=== PATIENT | female | born 1965 | race Hispanic/Latino ===

== ENCOUNTER 2019-02-20 18:49 | Emergency (ER) | payer BC ==
[2019-02-20] MEDS ORDERED: HYDROCODONE/CHLORPHEN 5 ML/OSYR ONE (19:14)
--- NOTE | 2019-02-20 19:45 | EDPHYS ---
Physician Documentation [facility] Name: Destini Benson Age: 53 yrs Sex: Female : 1965 Arrival Date: 02/20/2019 Time: 18:54 Bed 19 Private MD: ED Physician Teodoro Ernst HPI: 02/20 19:06 This 53 yrs old Female presents to ER via Ambulatory with complaints of Flu pm1 Symptoms. 19:06 The patient or guardian reports cough, congestion. Onset: The symptoms/episode pm1 began/occurred last night. Severity of symptoms: in the emergency department the symptoms are actually worse. Modifying factors: The symptoms are alleviated by nothing, the symptoms are aggravated by nothing. Associated signs and symptoms: Pertinent positives: body aches, Pertinent negatives: chest pain, diarrhea, ear ache, fever, sore throat, vomiting, shortness of breath. 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 - Social history:: Smoking status: Patient/guardian denies using tobacco. - Ebola Screening: : No symptoms or risks identified at this time. ROS: 19:06 Eyes: Negative for injury, pain, redness, and discharge, ENT: Negative for injury, pm1 pain, and discharge, Neck: Negative for injury, pain, and swelling, Cardiovascular: Negative for chest pain, palpitations, and edema. 19:06 Abdomen/GI: Negative for abdominal pain, nausea, vomiting, diarrhea, and constipation, Back: Negative for injury and pain, MS/Extremity: Negative for injury and deformity, Skin: Negative for injury, rash, and discoloration, Neuro: Negative for headache, weakness, numbness, tingling, and seizure. 19:06 Constitutional: Positive for body aches, Negative for poor PO intake. 19:06 Respiratory: Positive for cough, Negative for shortness of breath, sputum production, wheezing. Exam: 19:06 Constitutional: This is a well developed, well nourished patient who is awake, alert, pm1 and in no acute distress. Head/Face: Normocephalic, atraumatic. Eyes: Pupils equal round and reactive to light, extra-ocular motions intact. Lids and lashes normal. Conjunctiva and sclera are non-icteric and not injected. Cornea within normal limits. Periorbital areas with no swelling, redness, or edema. ENT: Nares patent. No nasal discharge, no septal abnormalities noted. Tympanic membranes are normal and external auditory canals are clear. Oropharynx with no redness, swelling, or masses, exudates, or evidence of obstruction, uvula midline. Mucous membranes moist. Neck: Trachea midline, no thyromegaly or masses palpated, and no cervical lymphadenopathy. Supple, full range of motion without nuchal rigidity, or vertebral point tenderness. No Meningismus. Chest/axilla: Normal chest wall appearance and motion. Nontender with no deformity. No lesions are appreciated. Cardiovascular: Regular rate and rhythm with a normal S1 and S2. No gallops, murmurs, or rubs. No pulse deficits. Respiratory: Lungs have equal breath sounds bilaterally, clear to auscultation and percussion. No rales, rhonchi or wheezes noted. No increased work of breathing, no retractions or nasal flaring. Abdomen/GI: Soft, non-tender, with normal bowel sounds. No distension or tympany. No guarding or rebound. No evidence of tenderness throughout. Obese Back: No spinal tenderness. No costovertebral tenderness. Full range of motion. Skin: Warm, dry with normal turgor. Normal color with no rashes, no lesions, and no evidence of cellulitis. MS/ Extremity: Pulses equal, no cyanosis. Neurovascular intact. Full, normal range of motion. 19:06 Neuro: Orientation: is normal, Motor: is normal, moves all fours, Gait: is steady, at a normal pace, without difficulty. Vital Signs: 19:00 BP 132 / 78; Pulse 96; Resp 19; Temp 98.8; Pulse Ox 97% ; Weight 113.4 kg; Height 5 ft. rv 2 in. (157.48 cm) (M); 19:00 Body Mass Index 45.73 (113.40 kg, 157.48 cm) rv MDM: 19:00 Patient medically screened. pm1 19:08 Data reviewed: vital signs. Data interpreted: Pulse oximetry: on room air is 97 %. pm1 Interpretation: normal. 19:44 Counseling: I had a detailed discussion with the patient and/or guardian regarding: the pm1 historical points, exam findings, and any diagnostic results supporting the discharge/admit diagnosis, lab results, the need for outpatient follow up, to return to the emergency department if symptoms worsen or persist or if there are any questions or concerns that arise at home. ED course: Patient wants Tamiflu. 02/20 19:06 Order name: Flu; Complete Time: 19:41 pm1 Administered Medications: 19:17 Drug: Tussionex Pennkinetic ER 5 ml Route: PO; lp1 19:46 Follow up: Response: No adverse reaction lp1 19:46 Drug: Tamiflu 75 mg Route: PO; lp1 19:46 Follow up: Response: Medication administered at discharge. lp1 Disposition: 02/21 07:40 Co-signature as Attending Physician, Teodoro Ernst MD I agree with the assessment and kdr plan of care. Disposition: 02/20/19 19:44 Discharged to Home. Impression: Influenza due to identified novel influenza A virus. - Condition is Stable. - Discharge Instructions: Influenza, Adult. - Prescriptions for Tamiflu 75 mg Oral Capsule - take 1 tablet by ORAL route every 12 hours for 5 days; 10 tablet. Guaifenesin AC 10- 100 mg/5 mL Oral Liquid - take 10 milliliter by ORAL route every 4 hours As needed; 240 milliliter. - Medication Reconciliation Form, Thank You Letter, Antibiotic Education, Prescription Opioid Use form. - Follow up: Emergency Department; When: As needed; Reason: Worsening of condition. Follow up: Private Physician; When: 2 - 3 days; Reason: Recheck today's complaints, Continuance of care, Re-evaluation by your physician. - Problem is new. - Symptoms have improved. Signatures: Dispatcher [employer] EDMS Teodoro Ernst MD MD [facility] Iris Ventura RN RN lp1 Nicholas Nieto NP PRODUCT CONSULTANT pm1 Jimenez Jacobsen RN RN rv Corrections: (The following items were deleted from the chart) 02/20 19:53 19:44 02/20/2019 19:44 Discharged to Home. Impression: Influenza due to identified lp1 novel influenza A virus. Condition is Stable. Forms are Medication Reconciliation Form, Thank You Letter, Antibiotic Education, Prescription Opioid Use. Follow up: Emergency Department; When: As needed; Reason: Worsening of condition. Follow up: Private Physician; When: 2 - 3 days; Reason: Recheck today's complaints, Continuance of care, Re-evaluation by your physician. Problem is new. Symptoms have improved. pm1
--- NOTE | 2019-02-20 19:45 | ER ---
Nurse's Notes [facility] Name: Destini Benson Age: 53 yrs Sex: Female : 1965 Arrival Date: 02/20/2019 Time: 18:54 Bed 19 Private MD: Diagnosis: Influenza due to identified novel influenza A virus Presentation: 02/20 18:59 Presenting complaint: Patient states: HAVING SOME ACHES, FEVERISH SINCE LAST NIGHT WITH rv COUGH AND CONGESTION. Transition of care: patient was not received from another setting of care. Onset of symptoms was February 19, 2019 at 19:00. Risk Assessment: Do you want to hurt yourself or someone else? Patient reports no desire to harm self or others. Initial Sepsis Screen: Does the patient meet any 2 criteria? No. Patient's initial sepsis screen is negative. Does the patient have a suspected source of infection? No. Patient's initial sepsis screen is negative. Care prior to arrival: None. 18:59 Method Of Arrival: Ambulatory rv 18:59 Acuity: SHARAD 4 rv Triage Assessment: 19:03 General: Appears comfortable, Behavior is cooperative. Pain: Denies pain. EENT: No rv deficits noted. Neuro: Level of Consciousness is awake, alert, obeys commands, Oriented to person, place, time, situation. Cardiovascular: Patient's skin is warm and dry. Respiratory: Airway is patent. 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 - Social history:: Smoking status: Patient/guardian denies using tobacco. - Ebola Screening: : No symptoms or risks identified at this time. Screenin:18 Abuse screen: Denies threats or abuse. Denies injuries from another. Nutritional lp1 screening: No deficits noted. Tuberculosis screening: No symptoms or risk factors identified. Fall Risk None identified. Assessment: 19:17 General: Appears in no apparent distress. Behavior is calm, cooperative, appropriate lp1 for age, Reports feeling ill for. Pain: Denies pain. Neuro: Level of Consciousness is awake, alert, obeys commands. Cardiovascular: Patient's skin is warm and dry. Respiratory: Reports cough that is Respiratory effort is even, unlabored. GI: No signs and/or symptoms were reported involving the gastrointestinal system. : No signs and/or symptoms were reported regarding the genitourinary system. EENT: No signs and/or symptoms were reported regarding the EENT system. Derm: Skin is pink, warm \T\ dry. Musculoskeletal: No deficits noted. Vital Signs: 19:00 BP 132 / 78; Pulse 96; Resp 19; Temp 98.8; Pulse Ox 97% ; Weight 113.4 kg; Height 5 ft. rv 2 in. (157.48 cm) (M); 19:00 Body Mass Index 45.73 (113.40 kg, 157.48 cm) rv ED Course: 18:54 Patient arrived in ED. mr 19:00 Triage completed. rv 19:00 Nicholas Nieto NP is PHCP. pm1 19:00 Teodoro Ernst MD is Attending Physician. pm1 19:10 Iris Ventura, CODY is Primary Nurse. lp1 19:15 Flu Sent. jb5 19:17 Arm band placed on. lp1 19:18 No provider procedures requiring assistance completed. Patient did not have IV access lp1 during this emergency room visit. 19:18 Patient has correct armband on for positive identification. lp1 Administered Medications: 19:17 Drug: Tussionex Pennkinetic ER 5 ml Route: PO; lp1 19:46 Follow up: Response: No adverse reaction lp1 19:46 Drug: Tamiflu 75 mg Route: PO; lp1 19:46 Follow up: Response: Medication administered at discharge. lp1 Outcome: 19:44 Discharge ordered by . pm1 19:53 Discharged to home ambulatory, with significant other. lp1 19:53 Condition: good 19:53 Discharge instructions given to patient, Instructed on discharge instructions, follow up and referral plans. medication usage, Demonstrated understanding of instructions, follow-up care, medications, Prescriptions given X 2. 19:53 Patient left the ED. lp1 Signatures: Mai Salazar mr Iris Ventura, RN RN lp1 Nicholas Nieto NP SUPERVISOR REWORK pm1 Chantel Noguera jb5 Jimenez Jacobsen RN RN rv
[2019-02-20] MEDS ORDERED: OSELTAMIVIR 75 MG CAP ONE (19:46)
[2019-02-20 19:57] VITALS: BP 132/78; TEMP 98.8; O2SAT 97
== END 2019-02-20 19:53 | disposition home or self-care (01) ==
LOC: ER 18:49
DX: J10.1 Influenza due to other identified influenza virus with other respiratory manifestations (principal); I10 Essential (primary) hypertension
CPT/HCPCS: 87804; 99283

== ENCOUNTER 2020-11-20 16:27 | Emergency (ER) | payer BC, OTHER ==
[2020-11-20 19:19] LABS: SARS-COV-2 RT PCR POSITIVE (NEGATIVE)
[2020-11-20] MEDS ORDERED: CASIRIVIMAB/IMDEVIMAB 10 ML VIAL ONE (20:17)
[2020-11-20] MEDS ORDERED: NA CHLORIDE 0.9% 250 ML ONE (20:24)
[2020-11-20] MEDS ORDERED: NA CHLORIDE 0.9% 100 ML ONE (20:24)
[2020-11-20] MEDS ORDERED: IBUPROFEN 400 MG TAB ONE (20:54)
--- NOTE | 2020-11-20 23:30 | EDPHYS ---
Physician Documentation [facility] Name: Destini Benson Age: 55 yrs Sex: Female : 1965 Arrival Date: 11/20/2020 Time: 16:40 Bed 2 Private MD: ED Physician Stoney Duncan HPI: 11/20 23:22 This 55 yrs old Female presents to ER via Ambulatory with complaints of jmm bodyaches, Fever. 23:22 Onset: The symptoms/episode began/occurred gradually, 1 day(s) ago. Modifying factors: jmm The symptoms are alleviated by nothing. the symptoms are aggravated by nothing. The patient has not experienced similar symptoms in the past. This is a 55-year-old female with a history of hypertension, hyperlipidemia the presents emerged part with complaints of cough, congestion, nausea, weakness beginning last night. has similar symptoms. Patient was immunized for coronavirus.. Historical: - Allergies: 16:51 No Known Allergies; ll1 - PMHx: 16:51 Hypertension; High Cholesterol; thyroid; ll1 - PSHx: 16:51 Cholecystectomy; back SX, partial hysterectomy; ll1 - Immunization history:: Client reports receiving the 2nd dose of the Covid vaccine, Flu vaccine is up to date. - Social history:: Smoking status: Patient denies any tobacco usage or history of. ROS: 23:22 Cardiovascular: Negative for chest pain, palpitations, and edema, Respiratory: Negative jmm for shortness of breath, cough, wheezing, and pleuritic chest pain. 23:22 Constitutional: Positive for body aches, chills. 23:22 All other systems are negative. Exam: 23:22 Constitutional: This is a well developed, well nourished patient who is awake, alert, jmm and in no acute distress. Head/Face: atraumatic. Eyes: EOMI, no conjunctival erythema appreciated ENT: Moist Mucus Membranes Neck: Trachea midline, Supple Chest/axilla: Normal chest wall appearance and motion. Cardiovascular: Regular rate and rhythm. No edema appreciated Respiratory: Normal respirations, no respiratory distress appreciated Abdomen/GI: Non distended, soft Back: Normal ROM Skin: General appearance color normal MS/ Extremity: Moves all extremities, no obvious deformities appreciated, no edema noted to the lower extremities Neuro: Awake and alert, normal gait Psych: Behavior is normal, Mood is normal, Patient is cooperative and pleasant Vital Signs: 16:52 BP 156 / 101; Pulse 93; Resp 17; Temp 99.5; Pulse Ox 97% on R/A; Weight 113.4 kg; ll1 Height 5 ft. 2 in. (157.48 cm); Pain 3/10; 20:38 BP 159 / 90; Pulse 86; Resp 18; Pulse Ox 100% on R/A; df1 21:02 BP 150 / 74; Pulse 79; Resp 18; Pulse Ox 100% on R/A; df1 21:15 BP 142 / 72; Pulse 76; Resp 18; Pulse Ox 100% on R/A; df1 21:30 BP 139 / 75; Pulse 77; Resp 18; Pulse Ox 100% on R/A; df1 21:45 BP 141 / 74; Pulse 78; Resp 18; Pulse Ox 100% on R/A; df1 22:00 BP 133 / 76; Pulse 80; Resp 18; Pulse Ox 100% on R/A; df1 22:26 BP 135 / 75; Pulse 81; Resp 18; Pulse Ox 100% on R/A; df1 23:00 BP 143 / 76; Pulse 80; Resp 18; Pulse Ox 100% on R/A; df1 16:52 Body Mass Index 45.73 (113.40 kg, 157.48 cm) ll1 MDM: 19:25 Patient medically screened. gricelda 23:26 Data reviewed: vital signs, nurses notes. Counseling: I had a detailed discussion with gricelda the patient and/or guardian regarding: the historical points, exam findings, and any diagnostic results supporting the discharge/admit diagnosis, lab results, the need for outpatient follow up, to return to the emergency department if symptoms worsen or persist or if there are any questions or concerns that arise at home. 11/20 17:06 Order name: Flu [facility] 11/20 19:19 Order name: COVID-19/FLU A+B; Complete Time: 19:29 EDMS 11/20 17:06 Order name: Droplet/Contact Precautions; Complete Time: 19:33 kj1 11/20 17:06 Order name: Labs collected and sent; Complete Time: 19:33 kj1 11/20 17:06 Order name: O2 Per Protocol; Complete Time: 19:33 kj1 Administered Medications: 20:35 Drug: Motrin (ibuprofen) 400 mg Route: PO; df1 22:35 Follow up: Response: No adverse reaction ea 23:01 Follow up: Response: No adverse reaction; Pain is decreased df1 21:00 Drug: Casirivimab-Imdevimab Dose Pack 120 mg/mL-120 mg/mL (EUA) 1 application Route: ea IV; Rate: calculated rate; Site: left antecubital; 22:35 Follow up: Response: No adverse reaction; IV Status: Completed infusion; IV Intake: ea 250ml 23:01 Follow up: Response: No adverse reaction; IV Intake: 250ml df1 Disposition Summary: 11/20/20 23:30 Discharge Ordered Location: Home [facility] Condition: Stable [facility] Diagnosis - Coronavirus infection, unspecified [facility] Followup: [facility] - With: Private Physician - When: 2 - 3 days - Reason: Recheck today's complaints, Continuance of care, Re-evaluation by your physician Discharge Instructions: - Discharge Summary Sheet [facility] - COVID-[address] [facility] Forms: - Medication Reconciliation Form [facility] - Thank You Letter [facility] - Antibiotic Education [facility] - Prescription Opioid Use [facility] Addendum: 11/24/2020 19:37 Co-signature as Attending Physician, Stoney Duncan MD I agree with the assessment and r n plan of care. Attestation: The patient's history, exam findings, diagnostics, and a summary of any interventions or procedures was reviewed in detail with Yuval DIAMOND. Signatures: Dispatcher [employer] Yuval Arias PA PA jmm Nieto, Roman, MD MD rn Antunez, Elena, RN RN ea Jackson, Kandis kj1 Nomi Vázquez RN RN ll1 Vira Sun df1 Corrections: (The following items were deleted from the chart) 11/20 18:09 17:06 Influenza Screen (A ordered. EDMS EDMS 18: 17:06 CORONAVIRUS ordered. EDMS EDMS
--- NOTE | 2020-11-20 23:30 | ER ---
Nurse's Notes [facility] Name: Destini Benson Age: 55 yrs Sex: Female : 1965 Arrival Date: 11/20/2020 Time: 16:40 Bed 2 Private MD: Diagnosis: Coronavirus infection, unspecified Presentation: 11/20 16:52 Chief complaint: Patient states: Cough, fatigue, body aches since last night. [place] hot ll1 with chills last night. Coronavirus screen: Vaccine status: Patient reports receiving the 2nd dose of the covid vaccine. Client denies travel out of the [place] in the last 14 days. chills, congestion, cough unrelated to allergies, fatigue, fever, muscle pain, shaking with chills, Client presents with at least one sign or symptom that may indicate coronavirus-19. Standard/surgical mask placed on the client. Ebola Screen: Patient denies travel to an Ebola-affected area in the 21 days before illness onset. Initial Sepsis Screen: Does the patient meet any 2 criteria? HR > 90 bpm. No. Patient's initial sepsis screen is negative. Does the patient have a suspected source of infection? Yes: Productive cough/pneumonia. Risk Assessment: Do you want to hurt yourself or someone else? Patient reports no desire to harm self or others. Onset of symptoms was November 19, 2020. 16:52 Method Of Arrival: Ambulatory ll1 16:52 Acuity: SHARAD 3 ll1 22:25 Note Infusion complete. Pt ate sandwich and soda. Denies pain. No distress noted. df1 23:00 Note NS 100ml completed. No distress noted. Pt to be observed til 2330. df1 Triage Assessment: 19:57 General: Appears in no apparent distress. General: Behavior is calm, cooperative. Pain: df1 Denies pain. Historical: - Allergies: 16:51 No Known Allergies; ll1 - PMHx: 16:51 Hypertension; High Cholesterol; thyroid; ll1 - PSHx: 16:51 Cholecystectomy; back SX, partial hysterectomy; ll1 - Immunization history:: Client reports receiving the 2nd dose of the Covid vaccine, Flu vaccine is up to date. - Social history:: Smoking status: Patient denies any tobacco usage or history of. Screenin:57 Abuse screen: Denies threats or abuse. Nutritional screening: No deficits noted. df1 Tuberculosis screening: No symptoms or risk factors identified. Fall Risk None identified. Assessment: 20:41 General: Appears in no apparent distress. comfortable, obese, Behavior is calm, df1 cooperative. Pain: Complains of pain in face Pain currently is 6 out of 10 on a pain scale. Neuro: No deficits noted. Cardiovascular: No deficits noted. Respiratory: No deficits noted. Respiratory: No deficits noted. Airway is patent Respiratory effort is even, unlabored, Respiratory pattern is regular, symmetrical, Breath sounds are clear. GI: No deficits noted. : No deficits noted. EENT: No deficits noted. Derm: No deficits noted. Musculoskeletal: No deficits noted. Vital Signs: 16:52 BP 156 / 101; Pulse 93; Resp 17; Temp 99.5; Pulse Ox 97% on R/A; Weight 113.4 kg; ll1 Height 5 ft. 2 in. (157.48 cm); Pain 3/10; 20:38 BP 159 / 90; Pulse 86; Resp 18; Pulse Ox 100% on R/A; df1 21:02 BP 150 / 74; Pulse 79; Resp 18; Pulse Ox 100% on R/A; df1 21:15 BP 142 / 72; Pulse 76; Resp 18; Pulse Ox 100% on R/A; df1 21:30 BP 139 / 75; Pulse 77; Resp 18; Pulse Ox 100% on R/A; df1 21:45 BP 141 / 74; Pulse 78; Resp 18; Pulse Ox 100% on R/A; df1 22:00 BP 133 / 76; Pulse 80; Resp 18; Pulse Ox 100% on R/A; df1 22:26 BP 135 / 75; Pulse 81; Resp 18; Pulse Ox 100% on R/A; df1 23:00 BP 143 / 76; Pulse 80; Resp 18; Pulse Ox 100% on R/A; df1 16:52 Body Mass Index 45.73 (113.40 kg, 157.48 cm) ll1 ED Course: 16:40 Patient arrived in ED. am2 16:52 Arm band placed on. ll1 16:54 Triage completed. 1 17:18 Yuval Cannon PA is PHCP. [facility] 17:18 Stoney Duncan MD is Attending Physician. gricelda 19:28 Quintana, Susanna, RN is Primary Nurse. ea 19:56 Inserted saline lock: 20 gauge in left antecubital area, using aseptic technique. df1 19:57 Patient has correct armband on for positive identification. Bed in low position. Call df1 light in reach. Side rails up X 1. Adult w/ patient. 23:43 No provider procedures requiring assistance completed. Patient did not have IV access ea during this emergency room visit. Administered Medications: 20:35 Drug: Motrin (ibuprofen) 400 mg Route: PO; df1 22:35 Follow up: Response: No adverse reaction ea 23:01 Follow up: Response: No adverse reaction; Pain is decreased df1 21:00 Drug: Casirivimab-Imdevimab Dose Pack 120 mg/mL-120 mg/mL (EUA) 1 application Route: ea IV; Rate: calculated rate; Site: left antecubital; 22:35 Follow up: Response: No adverse reaction; IV Status: Completed infusion; IV Intake: ea 250ml 23:01 Follow up: Response: No adverse reaction; IV Intake: 250ml df1 Intake: 22:35 IV: 250ml; Total: 250ml. ea 23:01 IV: 250ml; Total: 500ml. df1 Outcome: 23:30 Discharge ordered by . gricelda 23:43 Discharged to home ambulatory, with family. ea 23:43 Condition: stable 23:43 Discharge instructions given to patient, Instructed on discharge instructions, follow up and referral plans. Demonstrated understanding of instructions, follow-up care. 23:43 Patient left the ED. ea Signatures: Yuval Cannon PA PA jmm Moreno, Amanda am2 Susanna Quintana RN RN ea Lewis, Lynsay, RN RN 1 Vira Sun df1 Corrections: (The following items were deleted from the chart) 21:49 21:48 Casirivimab-Imdevimab Dose Pack 120 mg/mL-120 mg/mL (EUA) 1 application IV at ea calculated rate in left antecubital ea
[2020-11-21 01:41] VITALS: TEMP 99.5
[2020-11-21 01:42] VITALS: O2SAT 100
[2020-11-21 01:51] VITALS: BP 143/76
== END 2020-11-20 23:43 | disposition home or self-care (01) ==
LOC: ER 16:27
DX: U07.1 COVID-19 (principal); I10 Essential (primary) hypertension; E78.00 Pure hypercholesterolemia, unspecified
CPT/HCPCS: 96365; 0240U; 99283; 96366; J7050